=== PATIENT | male | born 1970 ===

== ENCOUNTER 2022-11-02 18:42 | Emergency (ER) | payer SELFPAY ==
[~2022-11-02] VITALS: Ht 175.2 cm; Wt 102.0 kg
[2022-11-02] MEDS ORDERED: lisINopril 10 MG (PRINIVIL) TABLET PO STA (19:03)
[2022-11-02] MEDS ORDERED: PANT20TA18 PO (19:16)
[2022-11-02] MEDS ORDERED: LISI20TA26 PO (19:16)
--- NOTE | 2022-11-02 19:17 | ED General ---
General Chief Complaint: General Problems/Pain Stated Complaint: LISINOPRIL REFILL Source of Information: Patient History of Present Illness Date Seen by Provider: Nov 02, 2022 Time Seen by Provider: 18:50 Initial Comments 52-year-old male presenting with complaints of running out of his 20 mg lisinopril today. 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 He does not have a primary care provider or a home basis. He states that since he was out of his medicine he had come to the emergency department when he saw the sign as he was passing through on his way to dialysis with a semitruck shipment. He was requesting refills of his lisinopril 20 mg a day for his blood pressure. He also reports that with his diet being mostly fast food as he is an over the road bulk truck driver he had been getting a lot of heartburn and requested some medicine for that. He denies currently having any chest pain, nausea, vomiting, epigastric pain, shortness of breath, headache, numbness or tingling in his arms or legs. He is requesting a 3-month supply of his medicine to help get him through until he can be seen again. Associated Systoms: No Chest Pain, No Cough, No Diaphoresis, No Fever/Chills, No Headaches, No Loss of Appetite, No Malaise, No Nausea/Vomiting, No Seizure, No Shortness of Air, No Syncope, No Weakness Allergies and Home Medications Allergies Coded Allergies: No Known Drug Allergies (Unverified , 11/02/22) Patient Home Medication List Home Medication List Reviewed: Yes Lisinopril (Lisinopril) 20 Mg Tablet, 20 MG PO DAILY Prescribed by: BERENICE EDDY on 11/02/221915 Pantoprazole Sodium (Pantoprazole Sodium) 20 Mg Tablet.dr, 20 MG PO DAILY Prescribed by: BERENICE EDDY on 11/02/221915 Review of Systems Review of Systems Constitutional: No chills, No dizziness, No fever EENTM: no symptoms reported Respiratory: No short of breath Cardiovascular: No chest pain Gastrointestinal: No nausea, No vomiting Genitourinary: No dysuria Musculoskeletal: no symptoms reported Skin: no symptoms reported Psychiatric/Neurological: Denies Headache, Denies Numbness, Denies Paresthesia Past Jvhfiat-Xwkayy-Yrmpgh Hx Patient Social History Tobacco Use?: No Past Medical History Surgery/Hospitalization HX: Hypertension, GERD Surgeries: No Physical Exam Vital Signs Vital Signs - First Documented 11/02/22 18:43 Temp 36.0 Pulse 97 Resp 16 B/P (MAP) 122/98 (106) Pulse Ox 98 O2 Delivery Room Air Capillary Refill : Height, Weight, BMI Height: '" Weight: lbs. oz. kg; BMI Method: General Appearance: No Apparent Distress, WD/WN HEENT: PERRL/EOMI, Pharynx Normal, Moist Mucous Membranes Neck: Full Range of Motion, Normal Inspection, Non Tender, Supple Respiratory: Chest Non Tender, Lungs Clear, Normal Breath Sounds, No Accessory Muscle Use, No Respiratory Distress Cardiovascular: Regular Rate, Rhythm, Normal Peripheral Pulses Gastrointestinal: Normal Bowel Sounds, No Pulsatile Mass, Non Tender, Soft Rectal: Deferred Extremity: Normal Capillary Refill, Normal Inspection, No Pedal Edema Neurologic/Psychiatric: Alert, Oriented x3, advertisement distributor II-XII Norm as Tested Skin: Normal Color, Warm/Dry Progress/Results/Core Measures Suspected Sepsis SIRS Temperature: Pulse: Respiratory Rate: Blood Pressure / Mean: Results/Orders My Orders Orders - BERENICE EDDY MD Lisinopril Tablet (Zestril Tablet) (11/02/22 19:03) Vital Signs/I&O 11/02/22 11/02/22 18:43 19:25 Temp 36.0 36.0 Pulse 97 97 Resp 16 16 B/P (MAP) 122/98 (106) 122/98 Pulse Ox 98 98 O2 Delivery Room Air Room Air Capillary Refill : Progress Note : Progress Note Potential diagnosis of medication noncompliance, hypertension, GERD, poor diet, stress. Patient's blood pressure currently was 122/98. He had a sinus rhythm with a pulse of 97. He was satting 98 to 100% on room air. Advised the patient that in general the emergency department is not the place to refill medications and certainly not have long-term medication management. I could empathize with his situation and advised him that I could prescribe 1 month of lisinopril to try and give him time to get established with a provider somewhere and have them continue to help manage his blood pressure. We will also send a prescription for a months worth of pantoprazole to try and help from a GERD standpoint. Advised to try and eat a more heart healthy diet. Counseled on follow-up and return precautions. Departure Impression Primary Impression: Hypertension Qualified Codes: I10 - Essential (primary) hypertension Additional Impressions: GERD (gastroesophageal reflux disease) Qualified Codes: K21.9 - Gastro-esophageal reflux disease without esophagitis Medication refill Disposition: HOME, SELF-CARE Condition: Stable Departure-Patient Inst. Decision time for Depature: 19:15 Referrals: NO,LOCAL PHYSICIAN (PCP) Primary Care Physician [facility] Patient Instructions: High Blood Pressure ED, Acid Reflux, Adult and Adolescent ED Add. Discharge Instructions: Try to eat a better more balanced heart healthy diet. Take your medicine for blood pressure and for stomach acid. Try to establish care with a clinic to get refills of your medications. All discharge instructions reviewed with patient and/or family. Voiced understanding. Scripts Pantoprazole Sodium (Pantoprazole Sodium) 20 Mg Tablet.dr 20 MG PO DAILY for Heartburn for 30 Days, #30 TAB 0 Refills Prov: BERENICE EDDY MD 11/02/22 Lisinopril (Lisinopril) 20 Mg Tablet 20 MG PO DAILY for High blood pressure for 30 Days, #30 TAB 0 Refills Prov: BERENICE EDDY MD 11/02/22 BERENICE EDDY MD Nov 02, 2022 19:17
[2022-11-02 19:25] VITALS: BP 122/98
== END 2022-11-02 19:25 | disposition home or self-care (01) ==
LOC: ER FS 18:46
DX: I10 Essential (primary) hypertension (principal); K21.9 Gastro-esophageal reflux disease without esophagitis; Z76.0 Encounter for issue of repeat prescription; Z28.310 Unvaccinated for COVID-19
CPT/HCPCS: 99283